=== PATIENT | male | born 1970 | race Caucasian/White ===

== ENCOUNTER 2019-11-13 17:39 | Emergency (ER) | payer BC ==
[2019-11-13 18:19] VITALS: BP 119/72
[2019-11-13] MEDS ORDERED: Ibuprofen TAB* 600 MG PO ONE (18:21)
[2019-11-13 18:30] LABS: Influenza A Molecular POSITIVE (Negative)
--- NOTE | 2019-11-13 19:07 | UC ---
FLU HPI - HPI Summary HPI Summary: 49 yo with onset of fever, chills, myalgias and cough last night. dx'd with flu a. Hx of overweight, exercise induced asthma, not diabetic. No vomiting or diarrhea. - History of Current Complaint Chief Complaint: UCGeneralIllness Stated Complaint: FLU LIKE SYMPTOMS Time Seen by Provider: 11/13/19 19:06 Hx Obtained From: Patient Onset/Duration: Sudden Onset, Lasting Days - 1 Severity Currently: Moderate Severity Initially: Moderate Pain Intensity: 8 Associated Signs & Symptoms: Positive: Fever, Myalgia, Sore Throat, Nasal Congestion, Headache - Risk Factors Influenza Risk Factors: Negative - Allergy/Home Medications Allergies/Adverse Reactions: Allergies Allergy/AdvReac Type Severity Reaction Status Date / Time azithromycin Allergy Hives/Diff. Verified 11/13/19 18:12 Breathing/I tching Macrolide Antibiotics Allergy Hives/Diff. Verified 11/13/19 18:12 Breathing/I tching Home Medications: Home Medications Oseltamivir CAP* [Tamiflu CAP*] 75 mg PO BID #10 cap 11/13/19 [Rx] PMH/Surg Hx/FS Hx/Imm Hx Previously Healthy: Yes Endocrine History: Hypothyroidism - resolved with weight loss - Surgical History Surgical History: Yes Surgery Procedure, Year, and Place: Bariatric surgery 07/11/15, - Family History Known Family History: Positive: Cardiac Disease - both parents, Diabetes - Social History Occupation: Employed Full-time Lives: With Family Alcohol Use: Rare Substance Use Type: None Smoking Status (MU): Never Smoked Tobacco - Immunization History Most Recent Influenza Vaccination: fall 2014 Review of Systems All Other Systems Reviewed And Are Negative: Yes Constitutional: Positive: Fever, Fatigue Skin: Positive: Negative Eyes: Positive: Negative ENT: Positive: Sore Throat, Sinus Congestion Respiratory: Positive: Cough Cardiovascular: Negative: Palpitations, Chest Pain Gastrointestinal: Positive: Negative. Negative: Vomiting, Nausea Genitourinary: Positive: Negative Motor: Positive: Negative Neurovascular: Positive: Negative Musculoskeletal: Positive: Arthralgia, Myalgia Neurological/Mental Status: Positive: Headache Psychological: Positive: Negative Is Patient Immunocompromised?: No Physical Exam Triage Information Reviewed: Yes Appearance: Ill-Appearing, Obese Vital Signs: Initial Vital Signs Temp 102.9 F 11/13/19 18:10 Pulse 108 11/13/19 18:10 Resp 16 11/13/19 18:10 BP 119/72 11/13/19 18:10 Pulse Ox 97 11/13/19 18:10 Eyes: Positive: Conjunctiva Clear ENT: Positive: Pharyngeal erythema, TMs normal Neck: Positive: Supple, Nontender, No Lymphadenopathy Respiratory: Positive: Lungs clear, Normal breath sounds Cardiovascular: Positive: RRR, No Murmur, Tachycardia Musculoskeletal Exam: Normal Neurological Exam: Normal Psychological Exam: Normal Diagnostics - Laboratory Lab Results: flu A positive Flu Course/Dx - Course Course Of Treatment: Tamiflu, rest, fluids, off work. - Differential Dx/Diagnosis Differential Diagnosis/HQI/PQRI: Influenza, Upper Respiratory Infection Provider Diagnosis: Influenza A Discharge ED - Sign-Out/Discharge Documenting (check all that apply): Patient Departure All imaging exams completed and their final reports reviewed: No Studies - Discharge Plan Condition: Stable Disposition: HOME Prescriptions: Oseltamivir CAP* [Tamiflu CAP*] 75 mg PO BID #10 cap Patient Education Materials: Influenza (ED) Forms: *Work Release Referrals: No Primary Care Phys,NOPCP [Primary Care Provider] - Additional Instructions: Increase fluids, aiming for 2 liters per day. Please take the full course of tamiflu Use ibuprofen 600mg up to 4 times per day for fever, and this can be alternated with Tylenol 650mg. Return if you have increasing shortness of breath or chest pain. - Billing Disposition and Condition Condition: STABLE Disposition: Home
== END 2019-11-13 19:25 | disposition home or self-care (01) ==
LOC: UCCORT 17:39
DX: J10.1 Influenza due to other identified influenza virus with other respiratory manifestations (principal); Z88.1 Allergy status to other antibiotic agents
CPT/HCPCS: 99202; A9270-GY; G0463